=== PATIENT | male | born 1990 | race African-American/Black ===

== ENCOUNTER 2016-05-26 11:34 | Emergency (ER) | payer SELFPAY ==
[~2016-05-26] VITALS: Ht 170.2 cm; Wt 61.2 kg
[2016-05-26 12:24] VITALS: BP 131/85
== END 2016-05-26 12:33 | disposition home or self-care (01) ==
LOC: ER 11:34
DX: J20.9 Acute bronchitis, unspecified (principal); R07.81 Pleurodynia; F12.10 Cannabis abuse, uncomplicated
CPT/HCPCS: 71020; 93005